=== PATIENT | female | born 2005 | race Two or more races ===

== ENCOUNTER → 2024-11-27 | Outpatient (CLI) | payer BC, SELFPAY ==
--- NOTE | 2024-11-27 09:00 | XR_ITS ---
Examination: Transvaginal ultrasound of the pelvis, complete Technique: Transvaginal sonographic images pelvis performed using bonilla scale imaging Exam date and time: November 27, 2024 0922 hours INDICATIONS: Left-sided pelvic pain beginning 3 weeks ago, pelvic sonogram May 27, 2024 24 mm complex cyst left ovary FINDINGS: Uterus 7.4 x 2.9 x 4.7 cm No uterine mass or intrauterine gestation Endometrial stripe 0.6 cm Right ovary 2.7 x 2.4 x 2.3 cm arterial flow small follicles Left ovary 2.5 x 1.7 x 2.1 cm arterial flow small follicles IMPRESSION: Negative examination.
== END | disposition home or self-care (01) ==
LOC: CDIM 08:53
PROVIDERS: PCP Family Medicine; Referring Provider Registered Nurse; Visit Provider Registered Nurse
DX: R10.2 Pelvic and perineal pain (principal)
CPT/HCPCS: 76830

== ENCOUNTER → 2025-04-07 | Outpatient (CLI) | payer BC, SELFPAY ==
--- NOTE | 2025-04-07 14:37 | XR_ITS ---
Examination: PA lateral chest 2 views TECHNIQUE: Upright PA lateral chest 2 views Date and time: April 07, 2025 1503 hours INDICATIONS: Clinical diagnosis coccidiomycosis. FINDINGS: Normal heart size No mediastinal lymphadenopathy No pneumonia or pulmonary edema IMPRESSION: No active disease
[2025-04-07 16:47] LABS: Basophils # (Auto) 0.1 Thou/mm3 (0.0-0.2); Basophils % (Auto) 1 % (0-2.5); Eosinophils # (Auto) 0.3 Thou/mm3 (0.0-0.5); Eosinophils % (Auto) 3 % (0-10); Hematocrit 37.9 % (36.0-46.0); Hemoglobin 13.3 g/dL (12.0-16.0); Immature Granulocytes % (Auto) 0 % (0-0); Immature Granulocytes Auto 0.02 Thou/mm3 (0.00-0.00); Lymphocytes # (Auto) 3.6 Thou/mm3 (1.0-4.8); Lymphocytes % (Auto) 42 % (10-50); Mean Corpuscular HGB Conc 35.1 g/dl (31.0-37.0); Mean Corpuscular Volume 86 fL (80-100); Monocytes # (Auto) 0.6 Thou/mm3 (0.0-0.8); Monocytes % (Auto) 7 % (0-12); Neutrophils # (Auto) 4.1 Thou/mm3 (1.8-7.7); Neutrophils % (Auto) 47 % (37-80); Nucleated Red Blood Cell % 0 /100 WBC (0); Platelet Count 329 Thou/mm3 (140-440); RDW Standard Deviation 37.3 fL (36.4-46.3); Red Blood Count 4.43 Miln/mm3 (4.00-5.20); White Blood Count 8.6 Thou/mm3 (3.6-11.0)
[2025-04-07 17:10] LABS: Alanine Aminotransferase 11 U/L (10-49); Albumin, Serum 4.5 gm/dL (3.5-5.0); Albumin/Globulin Ratio 1.8 (1.2-2.2); Alkaline Phosphatase 79 U/L (46-116); Anion Gap 9 (7-16); Aspartate Amino Transferase 20 U/L (0-34); BUN/Creatinine Ratio 15 Ratio (12-20); Bilirubin,Total 1.4 mg/dL (0.3-1.2); Blood Urea Nitrogen 12 mg/dL (9-23); Calcium 8.7 mg/dL (8.3-10.6); Calcium (Corrected) 8.7 mg/dL (8.5-10.1); Carbon Dioxide 25.8 mMol/L (20.0-31.0); Chloride 104 mMol/L (98-107); Creatinine (Component) 0.8 mg/dL (0.6-1.3); Globulin 2.5 gm/dL (2.3-3.5); Glucose 93 mg/dL (74-106); Osmolality,Calculated 277 (275-295); Potassium 3.9 mMol/L (3.4-5.1); Sodium 139 mMol/L (136-145); eGFR > 60 See Note
[2025-04-09 12:37] LABS: Cocci Serology, IgM Negative (Negative)
[2025-04-13 11:49] LABS: Cocci Serology, IgG Negative (Negative)
== END | disposition home or self-care (01) ==
PROVIDERS: PCP Family Medicine; Referring Provider Registered Nurse; Visit Provider Radiology Diagnostic Radiology
DX: R05.2 Subacute cough (principal)
CPT/HCPCS: 36415; 71046; 80053; 85025; 86331; 86635

== ENCOUNTER → 2025-07-23 | Outpatient (CLI) | payer BC, SELFPAY ==
[2025-07-24 09:23] LABS: BVAG Candida Negative (Negative); Bacterial Vaginosis Markers Negative (Negative); Candida glabrata Negative (Negative); Candida krusei PCR Negative (Negative); Trichomonas Negative (Negative)
== END | disposition home or self-care (01) ==
LOC: SLDO 14:49
PROVIDERS: Referring Provider Specialist; Visit Provider Specialist
DX: R10.2 Pelvic and perineal pain (principal); B37.89 Other sites of candidiasis; N76.0 Acute vaginitis; A59.01 Trichomonal vulvovaginitis
CPT/HCPCS: 81514; 87086

== ENCOUNTER → 2025-07-30 | Outpatient (CLI) | payer BC, SELFPAY ==
[2025-07-30 11:40] LABS: Basophils # (Auto) 0.1 Thou/mm3 (0.0-0.2); Basophils % (Auto) 1 % (0-2.5); Eosinophils # (Auto) 0.5 Thou/mm3 (0.0-0.5); Eosinophils % (Auto) 7 % (0-10); Hematocrit 39.4 % (36.0-46.0); Hemoglobin 13.4 g/dL (12.0-16.0); Immature Granulocytes Auto 0.01 Thou/mm3 (0.00-0.00); Lymphocytes # (Auto) 2.6 Thou/mm3 (1.0-4.8); Lymphocytes % (Auto) 40 % (10-50); Mean Corpuscular HGB Conc 34.0 g/dl (31.0-37.0); Mean Corpuscular Hemoglobin 29.6 pg (25.0-35.0); Mean Corpuscular Volume 87 fL (80-100); Monocytes # (Auto) 0.4 Thou/mm3 (0.0-0.8); Monocytes % (Auto) 6 % (0-12); Neutrophils # (Auto) 3.0 Thou/mm3 (1.8-7.7); Neutrophils % (Auto) 46 % (37-80); Nucleated Red Blood Cell # 0.00 Thou/mm3 (0.00-0.00); Nucleated Red Blood Cell % 0 /100 WBC (0); Platelet Count 282 Thou/mm3 (140-440); RDW Standard Deviation 38.9 fL (36.4-46.3); Red Blood Count 4.53 Miln/mm3 (4.00-5.20); White Blood Count 6.5 Thou/mm3 (3.6-11.0)
[2025-07-30 11:47] LABS: Glucose Estimated Average 97 mg/dL (80-131); Hemoglobin A1C 5.0 % Hgb (4.8-6.0)
[2025-07-30 12:01] LABS: Follicle Stimulating Hormone 3.45 mIU/mL (See Note)
[2025-07-30 12:03] LABS: Alanine Aminotransferase 14 U/L (10-49); Albumin, Serum 4.8 gm/dL (3.5-5.0); Albumin/Globulin Ratio 1.9 (1.2-2.2); Alkaline Phosphatase 78 U/L (46-116); Anion Gap 11 (7-16); Aspartate Amino Transferase 26 U/L (0-34); BUN/Creatinine Ratio 11 Ratio (12-20); Beta HCG,Quantitative < 1 mIU/mL (<5.0); Bilirubin,Total 1.4 mg/dL (0.3-1.2); Blood Urea Nitrogen 9 mg/dL (9-23); Calcium 9.6 mg/dL (8.3-10.6); Calcium (Corrected) 9.6 mg/dL (8.5-10.1); Carbon Dioxide 27.5 mMol/L (20.0-31.0); Chloride 103 mMol/L (98-107); Creatinine (Component) 0.8 mg/dL (0.6-1.3); Free T4 (Free Thyroxine) 1.42 ng/dL (0.89-1.76); Globulin 2.5 gm/dL (2.3-3.5); Glucose 69 mg/dL (74-106); Osmolality,Calculated 277 (275-295); Potassium 4.5 mMol/L (3.4-5.1); Sodium 141 mMol/L (136-145); Thyroid Stimulating Hormone 2.26 uIU/mL (0.55-4.78); Total Protein 7.3 gm/dL (5.7-8.2); eGFR > 60 See Note
[2025-08-09 09:14] LABS: DHEA Sulfate* 317 mcg/dL (18-391); Estrogen, Total, Serum* 159 pg/mL; Luteinizing Hormone* 8.0 mIU/mL; Progesterone,LC/MS* 2.7 ng/mL; Prolactin* 9.5 ng/mL; Testosterone, Free,Dialysis 2.7 pg/mL (0.1-6.4); Testosterone, Total, Dialysis 23 ng/dL (2-45)
== END | disposition home or self-care (01) ==
LOC: COPL 10:30
PROVIDERS: PCP Family Medicine; Referring Provider Specialist; Visit Provider Specialist
DX: N93.9 Abnormal uterine and vaginal bleeding, unspecified (principal)
CPT/HCPCS: 36415; 80053; 82627; 82672; 83001; 83002; 83036; 84144; 84146; 84402; 84403; 84439; 84443; 84702; 85025